=== PATIENT | male | born 1955 | race Caucasian/White ===

== ENCOUNTER → 2020-06-21 07:44 | Outpatient (CLI) | payer OTHER, SELFPAY ==
--- NOTE | ~2020-06-21 | US_ITS ---
EXAMINATION: US aorta [facility] DATE: 06/21/2020 08:16 CRISIS SPECIALIST INDICATION: Screening for aortic aneurysm. History of hypertension. Smoking history. TECHNIQUE: Grayscale, color Doppler, and pulsed Doppler images of the aorta and common iliac arteries were obtained. COMPARISON: None. FINDINGS: The proximal aorta measures 2.3 cm greatest sagittal dimension. The mid aorta measures 2.2 cm greates t sagittal dimension. The distal aorta measures 1.8 cm greatest sagittal dimension. The right common internal iliac artery measures 1.2 cm. The left common iliac artery measures 1.1 cm. IMPRESSION: 1. Normal caliber aorta without aneurysm. Reviewed, dictated and finalized at location B. IS SPECIALIST
== END ==
PROVIDERS: PCP Nurse Practitioner Family; Visit Provider Nurse Practitioner Family
DX: Z13.6 Encounter for screening for cardiovascular disorders (principal)
CPT/HCPCS: 76706

== ENCOUNTER 2020-08-30 14:08 | Outpatient (CLI) | payer OTHER, SELFPAY ==
--- NOTE | ~2020-08-30 | XR_ITS ---
EXAMINATION:XR cervical spine 4-5V DATE: 08/30/2020 14:37 INDICATION: Right-sided neck pain radiating to the humerus along with left-sided neck numbness and ti ngling that radiates to the left fingers. TECHNIQUE: AP, lateral, lateral swimmers and open-mouth and submental odontoid views of the cervical spine are provided. COMPARISON: None FINDINGS: 1 mm anterolisthesis C3 on C4. Alignment is otherwise normal. Odontoid is intact. Normal atlantoaxia l interval. Vertebral body heights are normal. Moderate to severe disc height loss at C5-C6 and C6-C7 , moderate disc height loss at C3-C4 and C4-C5, mild disc height loss at C2-C3 and C7-T1. Bilateral m ultilevel moderate to severe cervical facet and uncovertebral osteoarthritis. Prevertebral soft tiss ues are normal. IMPRESSION: 1. Moderate to severe cervical spondylosis. Reviewed, dictated and finalized at location A.
== END 2020-08-30 14:09 ==
PROVIDERS: Visit Provider Nurse Practitioner
DX: M47.892 Other spondylosis, cervical region (principal)
CPT/HCPCS: 72050

== ENCOUNTER 2021-12-25 07:50 | Outpatient (CLI) | payer MEDICARE, SELFPAY ==
[2021-12-25 18:42] LABS: Basophils Percent Auto 0.6 % (0.2-1.2); Eosinophils Absolute Auto 0.3 K/mm3 (0-0.3); Eosinophils Percent Auto 4.8 % (0-4.4); Hematocrit 42.2 % (42.0-52.0); Hemoglobin 13.8 g/dL (14.0-18.0); Immature Granulocyte Absolute 0.02 K/mm3 (0.00-0.031); Immature Granulocyte Percent A 0.3 % (0-0.5); Lymphocytes Percent Auto 23.8 % (18.3-44.2); Mean Corpuscular HGB Conc 32.7 g/dl (32-36); Mean Corpuscular Hemoglobin 31.1 pg (26-34); Mean Platelet Volume 12.1 fl (7.4-10.4); Monocytes Absolute Auto 0.9 K/mm3 (0.1-0.6); Neutrophils Absolute Auto 4.2 K/mm3 (1.3-6.7); Neutrophils Percent Auto 58.5 % (45.5-73.1); Platelet Count Result 276 k/mm3 (150-375); Red Blood Count 4.44 M/mm3 (4.6-6.20); White Blood Count 7.1 K/mm3 (4.5-10.0)
[2021-12-25 20:11] LABS: Alanine Aminotransferase 31 U/L (6-50); Albumin Level 4.2 g/dL (3.5-5.1); Alkaline Phosphatase 100 U/L (38-126); Anion Gap 7 mmol/L (8-16); Aspartate Amino Transferase 32 U/L (17-59); Bilirubin,Total 1.1 mg/dL (0.2-1.3); Blood Urea Nitrogen 16 mg/dL (9-20); Calcium 9.5 mg/dL (8.4-10.2); Carbon Dioxide 31 mmol/L (22-30); Chloride 101 mmol/L (98-107); Cholesterol 217 mg/dL (0-200); Estimated Glomerular Filt Rate > 60; Glucose 85 mg/dL (65-110); HDL Direct 42 mg/dL; Sodium 139 mmol/L (137-145); Triglycerides 187 mg/dL (<150)
[2021-12-25 20:22] LABS: LDL Cholesterol Direct 129 mg/dL
[2021-12-25 20:42] LABS: Prostate Specific Antigen 11.4 ng/mL (< OR = 4.0)
== END 2021-12-25 07:51 | disposition home or self-care (01) ==
PROVIDERS: PCP Nurse Practitioner Family; Visit Provider Nurse Practitioner Family
DX: R00.0 Tachycardia, unspecified (principal); E78.5 Hyperlipidemia, unspecified; I10 Essential (primary) hypertension; Z12.5 Encounter for screening for malignant neoplasm of prostate
CPT/HCPCS: 36415; 80053; 80061; 84153; 84443; 85025; G0103

== ENCOUNTER 2022-07-04 08:04 | Outpatient (CLI) | payer MEDICARE, SELFPAY ==
[2022-07-04 19:03] LABS: Basophils Absolute Auto 0.1 K/mm3 (0.0-0.1); Basophils Percent Auto 0.7 % (0.2-1.2); Eosinophils Absolute Auto 0.3 K/mm3 (0-0.3); Eosinophils Percent Auto 3.9 % (0-4.4); Hemoglobin 13.9 g/dL (14.0-18.0); Immature Granulocyte Absolute 0.03 K/mm3 (0.00-0.031); Immature Granulocyte Percent A 0.4 % (0-0.5); Lymphocytes Absolute Auto 1.86 K/mm3 (0.9-3.2); Lymphocytes Percent Auto 22.7 % (18.3-44.2); Mean Corpuscular HGB Conc 32.3 g/dl (32-36); Mean Corpuscular Hemoglobin 30.8 pg (26-34); Mean Corpuscular Volume 95.1 fl (80-100); Mean Platelet Volume 11.1 fl (7.4-10.4); Monocytes Absolute Auto 1.2 K/mm3 (0.1-0.6); Monocytes Percent Auto 14.5 % (2.6-8.5); Neutrophils Absolute Auto 4.8 K/mm3 (1.3-6.7); Neutrophils Percent Auto 57.8 % (45.5-73.1); Platelet Count Result 274 k/mm3 (150-375); Red Blood Count 4.52 M/mm3 (4.6-6.20); Red Cell Distribution Width 13.2 % (11.5-14.5); White Blood Count 8.2 K/mm3 (4.5-10.0)
[2022-07-04 19:05] LABS: LDL Cholesterol Direct 133 mg/dL
[2022-07-04 19:16] LABS: Alanine Aminotransferase 32 U/L (6-50); Albumin Level 4.3 g/dL (3.5-5.1); Alkaline Phosphatase 108 U/L (38-126); Anion Gap 6 mmol/L (8-16); Aspartate Amino Transferase 32 U/L (17-59); Bilirubin,Total 1.2 mg/dL (0.2-1.3); Blood Urea Nitrogen 15 mg/dL (9-20); Carbon Dioxide 29 mmol/L (22-30); Chloride 103 mmol/L (98-107); Cholesterol 235 mg/dL (0-200); Estimated Glomerular Filt Rate > 60; Glucose 56 mg/dL (65-110); HDL Direct 46 mg/dL; Potassium 4.4 mmol/L (3.4-5.0); Sodium 138 mmol/L (137-145); Triglycerides 138 mg/dL (<150)
== END 2022-07-04 08:05 | disposition home or self-care (01) ==
LOC: ANHGOSHLAB 08:05
PROVIDERS: PCP Nurse Practitioner Family; Visit Provider Nurse Practitioner Family
DX: E78.5 Hyperlipidemia, unspecified (principal); I10 Essential (primary) hypertension
CPT/HCPCS: 36415; 80053; 80061; 85025

== ENCOUNTER 2023-02-12 14:42 | Outpatient (CLI) | payer MEDICARE, SELFPAY ==
--- NOTE | ~2023-02-12 | XR_ITS ---
XR shoulder RT min 2V DATE: 02/12/2023 15:35 INDICATION: Fall. Right shoulder injury, pain TECHNIQUE: 4 views COMPARISON: None FINDINGS: No fracture or dislocation, periosteal reaction or bone destruction or abnormal soft tissue calcification of the right shoulder is detected. Normal alignment at the right acromioclavicular and glenohumeral joints. Dextroscoliosis and degenerative spurring of the thoracic spine. IMPRESSION: No significant abnormality of the right shoulder joint Reviewed, dictated and finalized at location L.
--- NOTE | ~2023-02-12 | XR_ITS ---
Corrected Report See Bolded Text in Impressions Typographical error 03/20/2023 [facility] [id number] DATE: 02/12/2023 15:35 INDICATION: Fall. Rib pain. TECHNIQUE: PA chest. 3 views of right ribs. 3 views of left ribs. COMPARISON: None FINDINGS: Normal heart size. No hilar or mediastinal enlargement. Discoid atelectasis or scarring, left upper lobe. No pulmonary infiltrate or consolidation, pleural effusion or pulmonary vascular congestion or pneumothorax. Dextroscoliosis and degenerative spurring of the thoracic spine. No recent rib fracture or bone destruction is detected. IMPRESSION: NO rib fracture is detected Discoid atelectasis or scarring, left upper lobe Reviewed, dictated and finalized at Location A. Reviewed, dictated and finalized at location B. MTDD IMPRESSION: New rib fracture is detected Discoid atelectasis or scarring, left upper lobe
== END 2023-02-12 14:43 ==
PROVIDERS: PCP Nurse Practitioner Family; Visit Provider Nurse Practitioner Family
DX: R07.81 Pleurodynia (principal); M25.511 Pain in right shoulder
CPT/HCPCS: 71111; 73030

== ENCOUNTER 2023-03-15 08:57 | Outpatient (CLI) | payer MEDICARE, SELFPAY ==
--- NOTE | ~2023-03-15 | XR_ITS ---
XR_RIBSBI_CR DATE: 03/15/2023 09:08 INDICATION: Recent fall, rib injury TECHNIQUE: 3 views of right ribs. 3 views of left ribs. COMPARISON: 03/01/2023 PA chest and bilateral RIBS FINDINGS: There is dextroscoliosis and degenerative spurring of the thoracic spine. Chronic old healed mild posterior lateral left ninth rib fracture deformity. No recent right or left rib fracture is noted. Normal heart size. The lungs are clear of infiltrate or consolidation. No pleural effusion, pulmonary vascular congestio n or pneumothorax. Probable discoid scarring, left upper lobe IMPRESSION: No recent rib fracture Probable chronic discoid scarring, left upper lobe Reviewed, dictated and finalized at Location A. Reviewed, dictated and finalized at location B.
== END 2023-03-15 08:58 ==
PROVIDERS: PCP Nurse Practitioner Family; Visit Provider Nurse Practitioner Family
DX: R07.81 Pleurodynia (principal)
CPT/HCPCS: 71110

== ENCOUNTER 2023-07-26 07:55 | Outpatient (CLI) | payer MEDICARE, SELFPAY ==
[2023-07-26 14:30] LABS: Alanine Aminotransferase 35 U/L (6-50); Albumin Level 4.4 g/dL (3.5-5.1); Alkaline Phosphatase 112 U/L (38-126); Anion Gap 6 mmol/L (8-16); Aspartate Amino Transferase 65 U/L (17-59); Bilirubin,Total 1.2 mg/dL (0.2-1.3); Blood Urea Nitrogen 18 mg/dL (9-20); Calcium 10.1 mg/dL (8.4-10.2); Carbon Dioxide 30 mmol/L (22-30); Chloride 103 mmol/L (98-107); Cholesterol 224 mg/dL (0-200); Estimated Glomerular Filt Rate > 60; Glucose 84 mg/dL (65-110); HDL Direct 41 mg/dL; Potassium 4.5 mmol/L (3.4-5.0); Sodium 139 mmol/L (137-145); Triglycerides 208 mg/dL (<150)
[2023-07-26 14:41] LABS: LDL Cholesterol Direct 135 mg/dL
[2023-07-26 15:13] LABS: Basophils Percent Auto 0.5 % (0.2-1.2); Eosinophils Absolute Auto 0.4 K/mm3 (0-0.3); Eosinophils Percent Auto 4.7 % (0-4.4); Hematocrit 46.4 % (42.0-52.0); Immature Granulocyte Absolute 0.01 K/mm3 (0.00-0.031); Immature Granulocyte Percent A 0.1 % (0-0.5); Lymphocytes Absolute Auto 2.01 K/mm3 (0.9-3.2); Lymphocytes Percent Auto 27.1 % (18.3-44.2); Mean Corpuscular HGB Conc 32.3 g/dl (32-36); Mean Corpuscular Volume 95.9 fl (80-100); Mean Platelet Volume 11.5 fl (7.4-10.4); Monocytes Percent Auto 13.2 % (2.6-8.5); Neutrophils Percent Auto 54.4 % (45.5-73.1); Platelet Count Result 277 k/mm3 (150-375); Red Blood Count 4.84 M/mm3 (4.6-6.20); Red Cell Distribution Width 13.3 % (11.5-14.5); White Blood Count 7.4 K/mm3 (4.5-10.0)
[2023-07-30 13:45] LABS: Vitamin D 1,25 (OH)2 Total 48 pg/mL (18-72); Vitamin D2 1,25 (OH)2 <8 pg/mL; Vitamin D3 1,25 (OH)2 48 pg/mL
== END 2023-07-26 07:56 | disposition home or self-care (01) ==
PROVIDERS: PCP Nurse Practitioner Family; Visit Provider Nurse Practitioner Family
DX: E78.5 Hyperlipidemia, unspecified (principal); I10 Essential (primary) hypertension; E55.9 Vitamin D deficiency, unspecified
CPT/HCPCS: 36415; 80053; 80061; 82652; 85025

== ENCOUNTER 2023-10-28 09:21 | Outpatient (CLI) | payer MEDICARE, SELFPAY ==
--- NOTE | ~2023-10-28 | XR_ITS ---
XR knee RT 3V Ordering provider: Sylvain Bryant APRN History: . no recent injury anterior knee swelling for 3 days . Comparison: None. FINDINGS: BONES: No acute fracture or dislocation. Postoperative changes in the proximal tibia. JOINT SPACES: Narrowing of the medial compartment. SOFT TISSUES: Fluid is seen in the suprapatellar bursa. IMPRESSION: No acute osseous abnormality right knee. Reviewed, dictated and finalized at location A.
== END 2023-10-28 09:22 ==
PROVIDERS: PCP Family Medicine; Visit Provider Student in an Organized Health Care Education/Training Program
DX: M25.461 Effusion, right knee (principal); M79.89 Other specified soft tissue disorders
CPT/HCPCS: 73562

== ENCOUNTER 2023-10-29 08:00 | Outpatient (CLI) | payer MEDICARE, SELFPAY ==
[2023-10-29 12:56] LABS: Basophils Percent Auto 0.4 % (0.2-1.2); Eosinophils Absolute Auto 0.2 K/mm3 (0-0.3); Eosinophils Percent Auto 3.3 % (0-4.4); Hematocrit 40.9 % (42.0-52.0); Hemoglobin 13.5 g/dL (14.0-18.0); Immature Granulocyte Absolute 0.03 K/mm3 (0.00-0.031); Immature Granulocyte Percent A 0.4 % (0-0.5); Lymphocytes Absolute Auto 1.35 K/mm3 (0.9-3.2); Mean Corpuscular Hemoglobin 31.4 pg (26-34); Mean Corpuscular Volume 95.1 fl (80-100); Mean Platelet Volume 11.7 fl (7.4-10.4); Monocytes Percent Auto 14.2 % (2.6-8.5); Neutrophils Absolute Auto 4.2 K/mm3 (1.3-6.7); Neutrophils Percent Auto 61.7 % (45.5-73.1); Platelet Count Result 227 k/mm3 (150-375); Red Cell Distribution Width 13.4 % (11.5-14.5); White Blood Count 6.8 K/mm3 (4.5-10.0)
[2023-10-29 13:24] LABS: CRP 0.9 mg/dL (<1.0); Uric Acid 5.5 mg/dL (3.5-8.5)
[2023-10-29 13:40] LABS: Erythrocyte Sedimentation Rate 22 mm/hr (0-20)
== END 2023-10-29 08:01 | disposition home or self-care (01) ==
PROVIDERS: PCP Family Medicine; Visit Provider Student in an Organized Health Care Education/Training Program
DX: M25.461 Effusion, right knee (principal); M25.569 Pain in unspecified knee
CPT/HCPCS: 36415; 84550; 85025; 85652; 86140

== ENCOUNTER 2024-07-09 07:53 | Outpatient (CLI) | payer MEDICARE, SELFPAY ==
[2024-07-09 15:04] LABS: Basophils Percent Auto 0.5 % (0.2-1.2); Eosinophils Absolute Auto 0.2 K/mm3 (0-0.3); Eosinophils Percent Auto 2.9 % (0-4.4); Hematocrit 42.3 % (42.0-52.0); Hemoglobin 13.8 g/dL (14.0-18.0); Immature Granulocyte Absolute 0.01 K/mm3 (0.00-0.031); Immature Granulocyte Percent A 0.2 % (0-0.5); Lymphocytes Absolute Auto 1.72 K/mm3 (0.9-3.2); Lymphocytes Percent Auto 25.9 % (18.3-44.2); Mean Corpuscular HGB Conc 32.6 g/dl (32-36); Mean Corpuscular Hemoglobin 30.9 pg (26-34); Mean Corpuscular Volume 94.8 fl (80-100); Mean Platelet Volume 11.4 fl (7.4-10.4); Monocytes Absolute Auto 0.9 K/mm3 (0.1-0.6); Monocytes Percent Auto 12.8 % (2.6-8.5); Neutrophils Absolute Auto 3.8 K/mm3 (1.3-6.7); Neutrophils Percent Auto 57.7 % (45.5-73.1); Platelet Count Result 268 k/mm3 (150-375); Red Blood Count 4.46 M/mm3 (4.6-6.20); Red Cell Distribution Width 13.2 % (11.5-14.5); White Blood Count 6.6 K/mm3 (4.5-10.0)
[2024-07-09 19:12] LABS: Alanine Aminotransferase 33 U/L (6-50); Albumin Level 4.2 g/dL (3.5-5.1); Alkaline Phosphatase 99 U/L (38-126); Anion Gap 10 mmol/L (4-12); Aspartate Amino Transferase 47 U/L (17-59); Bilirubin,Total 1.3 mg/dL (0.2-1.3); Blood Urea Nitrogen 16 mg/dL (9-20); Calcium 9.6 mg/dL (8.4-10.2); Carbon Dioxide 26 mmol/L (22-30); Chloride 104 mmol/L (98-107); Cholesterol 214 mg/dL (0-200); Estimated Glomerular Filt Rate > 60; Glucose 74 mg/dL (65-110); HDL Direct 44 mg/dL; Potassium 4.2 mmol/L (3.4-5.0); Sodium 140 mmol/L (137-145); Triglycerides 145 mg/dL (<150)
[2024-07-09 19:23] LABS: LDL Cholesterol Direct 121 mg/dL
[2024-07-09 20:30] LABS: Folic Acid > 20.0 ng/mL (2.76->20)
[2024-07-09 22:41] LABS: Vitamin D 25 Hydroxy 33.4 ng/mL
[2024-07-09 23:06] LABS: Iron 137 ug/dL (49-181)
[2024-07-09 23:12] LABS: Percent Iron Saturation 43 % (20-50)
[2024-07-10 04:17] LABS: Hemoglobin A1C 4.7 % (<5.7)
== END 2024-07-09 07:54 | disposition home or self-care (01) ==
LOC: ANHGOSHLAB 07:54
PROVIDERS: PCP Family Medicine; Visit Provider Family Medicine
DX: E78.5 Hyperlipidemia, unspecified (principal); D64.9 Anemia, unspecified; I10 Essential (primary) hypertension; R73.9 Hyperglycemia, unspecified; E55.9 Vitamin D deficiency, unspecified
CPT/HCPCS: 36415; 80053; 80061; 82306; 82607; 82728; 82746; 83036; 83540; 83550; 84443; 85025

== ENCOUNTER 2025-01-29 13:12 | Outpatient (CLI) | payer MEDICARE, SELFPAY ==
--- OUTSIDE RECORDS SUMMARY | 2016-01-18 09:00 | XMS_ITS | Continuity of Care Document ---
Author Organization [facility] Address [address] [place] [address] Phone Care Team Providers Care Fur Dry Cleaner Name Role Phone Darrel Michael MD Unavailable Unavailable Advance Directives Directive Yes / No Effective Date File Name No Information Encounters Encounter Description Practice Location Reason(s) For Visit Diagnoses Date Provider Providers Copied on Encounter [facility] [employer], [address], [place], [place], [id number], [place] tel:[phone] [facility] No Information Fernanda Rojo. [address] , [place], [place], [id number], [place]. tel:[phone] Referring Provider: Sha Bullock, [facility] [address], [place], [address]. tel:[phone] Family History Family Member Type Diagnosis Age At Onset No Information Payers Payer name Insurance type Covered constitution party ID Authoriza tion(s) [facility] CI [id number] Social History Type Description Quantity Date Captured Comments Sex Male Smoking Status No Information Chief Complaint And Reason For Visit No Information Reason For Referral Reason For Referral No Information History Of Present Illness Encounter Date Complaint History Of Prese nt Illness No Information Functional Status Date Functional Assessmen t No Information Instructions Date Instruction Additional Infor mation No Information Assessments Type Assessment Date No Information Patient Care Teams Name Effective Dates (start - stop) Status Members No Information
--- OUTSIDE RECORDS SUMMARY | 2017-02-28 04:21 | XMS_ITS | Continuity of Care Document ---
Author Organization [facility] Address [address] [place] [address] Phone Care Team Providers Care Welding Manager Name Role Phone Savita GARCIA MD, Adolfo Unavailable Unavaila ble Advance Directives Directive Yes / No Effective Date File Name No Information Encounters Encounter Description Practice Location Reason(s) For Visit Diagnoses Date Provider Providers Copied on Encounter [facility], [address] [facility], [place], [place], [id number], [place] tel:[phone] [facility] No Information Savita Mata. [address] [facility] [facility] [address], [place], [place], [id number] , [place]. tel: [phone] Family History Family Member Type Diagnosis Age At Onset No Information Payers Payer name Insurance type Covered alliance party ID Authoriza tion(s) No Information Social History Type Description Quantity Date Captured [...]
--- NOTE | ~2025-01-29 | PE_ITS ---
EXAMINATION: PET_PETPSMAST_PT DATE: 01/29/2025 15:15 INDICATION: Prostate cancer TECHNIQUE: 5.06 mCi of Illucix Ga-[id number]) was administered i.v. Low dose computed tomography (CT) images were acquired from the base of the brain to the base of the brain to the proximal thighs for attenuation correction and anatomic localization. Positron emission tomography (PET) images were acquired in the same distribution beginning 69 minutes after injection. Images including fused PET/CT images were reconstructed in axial, coronal, and sagittal planes. Automated exposure control technique was employed. The dose-length product was 987.06mGy-cm. COMPARISON: None FINDINGS: Head/neck: Typical pattern of symmetric physiologic increased activity in the lacrimal, parotid and submandibular glands as well as along the mucosa of the nasal and oral cavities, pharynx and hypopharynx. No pathologically enlarged cervical lymphadenopathy or suspicious foci of increased uptake in the visualized head or neck. Chest: Mild emphysema with biapical pleural-parenchymal scarring. Mild discoid atelectasis/scarring at the junction of the left upper lobe and lingula. Additional mild discoid atelectasis in the right lower lobe. Calcified right lower lobe nodule consistent with old granulomatous disease. No suspicious noncalcified pulmonary nodules, pneumonia, pulmonary edema or pleural effusion. Heart size is normal. Atherosclerotic coronary artery calcification. No pericardial effusion. Thoracic aorta is normal in caliber. No pathologically enlarged or PSMA avid thoracic lymphadenopathy. Abdomen/pelvis/proximal thighs: Physiologic renal accumulation and excretion of activity in the kidneys, bladder and along portions of ureters. Prostatomegaly measuring approximately 5.5 x 4.0 cm. Dilation of the prostate and partially bladder and bowels in the deep pelvis is limited by dense metallic streak artifact related to bilateral total hip arthroplasties. There is heterogeneous mild uptake in the prostate with maximal SUV values measuring up to 3.3. There are photopenic defects associated with bilateral renal cysts measuring up to 4.5 cm in the left kidney. Photopenic defect associated with a 4.3 cm cyst in the left hepatic lobe. Otherwise normal degree and slightly heterogenous pattern of increased uptake throughout the liver and spleen without radiologic correlate or dominant PSMA avid lesion. Multiple calcified gallstones filling the otherwise normal gallbladder with no wall thickening or pericholecystic inflammatory change to suggest acute cholecystitis. The pancreas and bilateral adrenal glands are normal. Mild to moderate uptake scattered throughout the bowels with typical duodenal and proximal jejunal predominance and without radiologic correlate, also likely physiologic. Diverticulosis, severe at the sigmoid colon without adjacent inflammatory stranding to suggest diverticulitis. Normal appendix. No other ab normal foci of increased uptake or pathologically enlarged lymphadenopathy in the abdomen, pelvis or proximal thighs. Musculoskeletal: There are bridging osteophytes at T4-L4 consistent with diffuse idiopathic skeletal hyperostosis (DISH). No suspicious lytic, blastic or abnormally PSMA avid bone lesions. IMPRESSION: 1. Prostatomegaly with mild heterogeneous uptake with maximal SUV of 3.3 which could represent the reported primary prostate cancer. No evident metastatic disease although sensitivity could be decreased given the low degree of activity in the prostate. 2. Cholelithiasis. Reviewed, dictated and finalized at location A. IMPRESSION: 1. Prostatomegaly with mild heterogeneous uptake with maximal SUV of 3.3 which could represent the reported primary prostate cancer. No evident metastatic dis ease although sensitivity could be decreased given the low degree of activity i n the prostate. 2. Cholelithiasis.
--- OUTSIDE RECORDS SUMMARY | 2025-01-29 13:17 | XMS_ITS | Clinical Summary ---
Author Organization [facility] [address] [facility] Address [address] [place] [address] Care Team Providers Care Subcontract Manager Name Role Phone Unavailable Primary Care Provider Unavailabl e Social History Tobacco Use Types Packs/Day Years Used Date Smoking Tobacco: Never Assessed Sex and Gender Information Value Date Recorded Sex Assigned at Not on file Legal Sex Male 11:09 AM CDT Gender Identity Not on file Sexual Orientation Not on file Plan of Treatment Health Maintenance Due Date Last Done Comments DTAP/TDAP/TD VACCINES (1 - Tdap) 1972 COLORECTAL SCREENING 1998 Colorectal Cancer Screening 1998 FIT-DNA Q 3 years 1998 FIT/FOBT Q 1 year 1998 Flex Sig/CT Colonography Q 5 years 1998 PNEUMOCOCCAL VACCINE 50+ YEARS (1 of 1 - PCV) 06/09/19 04 ZOSTER VACCINE (1 of 2) 2003 INFLUENZA VACCINE (#1) 2024 RSV VACCINE (60+ or ) (1 - 1-dose 75+ series) 2028
--- OUTSIDE RECORDS SUMMARY | 2025-01-29 13:17 | XMS_ITS | Clinical Summary ---
Author Organization [facility] Address [address] [place] [address] Care Team Providers Care Casket Upholsterer Name Role Phone Unavailable Primary Care Provider Unavailabl e Social History Tobacco Use Types Packs/Day Years Used Date Smoking Tobacco: Never Assessed Sex and Gender Information Value Date Recorded Sex Assigned at Not on file Legal Sex Male 8:20 PM CDT Gender Identity Not on file Sexual Orientation Not on file Plan of Treatment Health Maintenance Due Date Last Done Comments Colorectal Cancer Screening Colonoscopy (10 Years) 1953 Hepatitis C 1971 DTaP, Tdap and Td Vaccines ( 1 - Tdap) 1972 Pneumococcal Vaccine: 50+ Ye ars (1 of 1 - PCV) 2003 Zoster Vaccines (1 of 2) 2003 COVID-19 Vaccine ( - 2023-2 5 season) 2025 RSV Immunization or 60+ Years (1 - 1-dose 75+ series) 2028 Meningococcal B Vaccine Aged Out No l onger eligible based on patient's age to complete this topic Meningococcal Vaccine Aged Out No tony vlad eligible based on patient's age to complete this topic RSV Immunizations Under 20 Months Aged Out No longer eligible based on patient's age to complete this topic Insurance [employer]
== END 2025-01-29 13:13 | disposition home or self-care (01) ==
PROVIDERS: PCP Nurse Practitioner Family; Visit Provider Urology
DX: C61 Malignant neoplasm of prostate (principal); K80.20 Calculus of gallbladder without cholecystitis without obstruction
CPT/HCPCS: 78815; A9596